=== PATIENT | female | born 1990 | race Caucasian/White ===

== ENCOUNTER 2018-03-25 00:22 | Emergency (ER) | payer OTHER, MEDICAID ==
[2018-03-25] MEDS: CEFTRIAXONE 1 GM/50 ML (PMX) 50 ML IVPB (01:23)
[2018-03-25] MEDS: KETOROLAC 30 MG INJ IV (01:23)
[2018-03-25] MEDS: SOD CHLORIDE 0.9% 1,000 ML IV (01:24)
[2018-03-25] MEDS: morphine 2 MG INJ IV (01:24)
== END 2018-03-25 02:40 | disposition home or self-care (01) ==
LOC: E/R 00:22
DX: N61.1 Abscess of the breast and nipple (principal); E11.9 Type 2 diabetes mellitus without complications; Z79.4 Long term (current) use of insulin
CPT/HCPCS: 96374; 96375; 99284-25